=== PATIENT | male | born 1970 | race Caucasian/White ===

== ENCOUNTER 2017-06-21 17:56 | Emergency (ER) | payer SELFPAY ==
[~2017-06-21] VITALS: Ht 177.8 cm; Wt 126.7 kg
[~2017-06-21 17:56] MED LIST: LOSARTAN POTASS25 MG PO
[2017-06-21 18:42] LABS: HEMATOCRIT 43.4 % (38.0-50.0); MCH 28.3 PG (29.0-34.0); MCHC 34.1 G/DL (30.0-36.0); MEAN PLAT.VOLUME 9.3 uM^3 (9.0-12.4); PLATELET COUNT 254 K/uL (156-360); RBC DIS.WIDTH-CV 12.9 % (11.8-14.6); RBC DIS.WIDTH-SD 39.3 % (39-53); RED BLOOD COUNT 5.23 M/uL (4.00-5.50); WHITE BLOOD COUNT 10.9 K/uL (4.1-10.2)
[2017-06-21 18:55] LABS: CHLORIDE 105 mEq/L (99-109); POTASSIUM 3.4 mEq/L (3.7-5.4); SODIUM 136 mEq/L (136-147)
[2017-06-21 18:57] LABS: GLUCOSE 110 mg/dL (70-99)
[2017-06-21 18:58] LABS: ANION GAP 12 MEQ/L (2-14)
[2017-06-21 19:00] LABS: GFR ESTIMATE (CALCULATED) > 59 mL/min/
[2017-06-21 19:01] LABS: UREA NITROGEN (BUN) 11 mg/dL (9-23)
[2017-06-21 19:05] LABS: TROP-I INTERPRETATION NEGATIVE; TROPONIN-I < 0.01 ng/mL (0.0-0.30)
[2017-06-21 21:53] LABS: TOTAL BILIRUBIN 0.6 mg/dL (0.0-1.0)
[2017-06-21 21:55] LABS: ALKALINE PHOSPHATASE 84 IU/L (3-129)
[2017-06-21 21:57] LABS: DIRECT BILIRUBIN 0.2 mg/dL (0.0-0.3)
[2017-06-21 22:49] VITALS: BP 134/87
== END 2017-06-21 22:50 | disposition home or self-care (01) ==
LOC: EME 17:56
PROVIDERS: Physician Assistant
DX: B34.9 Viral infection, unspecified (principal); R07.9 Chest pain, unspecified; R05 Cough; R06.02 Shortness of breath; R00.0 Tachycardia, unspecified; R11.0 Nausea; I10 Essential (primary) hypertension
CPT/HCPCS: 71020; 71275; 76705; 80048; 80076; 84484; 85027; 85379; 93005; 99281; 99284; J7030